=== PATIENT | female | born 2000 | race Caucasian/White ===

== ENCOUNTER → 2022-11-03 11:00 | Outpatient (BNVA) | payer MEDICAID, SELFPAY | PROVIDERS: Visit Provider Nurse Practitioner Women's Health | DX: Z30.9 Encounter for contraceptive management, unspecified (principal); Z12.4 Encounter for screening for malignant neoplasm of cervix | CPT/HCPCS: 81025; 88175 ==

== ENCOUNTER → 2022-11-20 15:00 | Outpatient (BNVA) | payer MEDICAID, SELFPAY | PROVIDERS: Visit Provider Nurse Practitioner Women's Health | DX: Z30.42 Encounter for surveillance of injectable contraceptive (principal); Z30.9 Encounter for contraceptive management, unspecified | CPT/HCPCS: 81025 ==

== ENCOUNTER → 2023-03-14 13:10 | Outpatient (BNVA) | payer MEDICAID, SELFPAY | PROVIDERS: Visit Provider Registered Nurse Neonatal Intensive Care | DX: Z20.822 Contact with and (suspected) exposure to COVID-19 (principal) | CPT/HCPCS: 87426 ==

== ENCOUNTER → 2023-05-28 14:15 | Outpatient (BNVA) | payer MEDICAID, SELFPAY | PROVIDERS: Visit Provider Nurse Practitioner Family | DX: R11.2 Nausea with vomiting, unspecified (principal); R39.9 Unspecified symptoms and signs involving the genitourinary system | CPT/HCPCS: 81003; 81025 ==

== ENCOUNTER 2023-06-03 08:18 | Outpatient (CLI) | payer MEDICAID, SELFPAY ==
--- NOTE | 2023-06-03 08:45 | US_ITS ---
WS: [id number] RIGHT UPPER QUADRANT ULTRASOUND HISTORY: R11.0 - Nausea COMPARISON: None available. Liver: 16.6 cm in length. Normal size liver and echogenicity. No bile duct dilatation or mass. Portal Vein: Normal hepatopetal flow with monophasic waveform. Gallbladder: Normally distended gallbladder with no stones or wall thickening. CBD: 0.3 cm Pancreas: Portions of the head and tail are obscured. The body is negative. Right kidney: 10.7 cm in length. Normal size and echogenicity. No hydronephrosis or mass. Aorta and IVC: Unremarkable abdominal aorta and IVC. No ascites. US/US gall bladder [id number] IMPRESSION: Normal RIGHT upper quadrant ultrasound.
== END 2023-06-03 08:19 | disposition home or self-care (01) ==
LOC: RAD 08:21
PROVIDERS: PCP Nurse Practitioner Family; Visit Provider Nurse Practitioner Family
DX: R11.0 Nausea (principal)
CPT/HCPCS: 76705; 81003; 81025

== ENCOUNTER 2024-02-04 20:49 | Outpatient (CLI) | payer BC, SELFPAY ==
[2024-02-04] VITALS (12 sets, daily range): BP systolic 114–136; BP diastolic 56–73; PULSE 81–104; TEMP 36.6–37.1; BMI 44.9
[2024-02-04 21:30] LABS: Bacteria Urine 1+ /hpf; Bilirubin Urine Neg (Negative); Blood Urine Trace (Negative); Glucose Urine UA Norm (Normal); Ketones Urine Negative (Negative); Leukocyte Esterase Urine Negative (Negative); Nitrate Urine Negative (Negative); Protein Urine Neg (Negative); RBC Urine 0-4 /hpf (0-2); Specific Gravity, Urine 1.015 (1.005-1.030); Squamous Epithelial Cell Urine 15-25 /hpf (0-5); Urine Appearance Clear (CLEAR); Urine Color Dark Yellow (Yellow); Urobilinogen Urine 1 mg/dL (Negative); pH Urine 6.5 (5-7)
[2024-02-04] MEDS: ondansetron 4 MG Tablet PO (21:36)
[2024-02-04] MEDS: acetaminophen 500 mg Tablet 1000 MG PO (21:36)
[2024-02-04] MEDS: lactated ringers 1,000 ML 999 ML IV (22:46)
[2024-02-05 00:04] VITALS: BP 129/58; PULSE 81; RESP 16
== END 2024-02-05 00:04 | disposition home or self-care (01) ==
LOC: OPOB 20:50 → OBGYN 20:52
PROVIDERS: Visit Provider Family Medicine
DX: O26.899 Other specified pregnancy related conditions, unspecified trimester (principal); Z3A.00 Weeks of gestation of pregnancy not specified
CPT/HCPCS: 59025; 81001; 99211; J7120; Q0162

== ENCOUNTER 2024-03-16 03:25 | Inpatient (IN) | payer BC, MEDICAID, SELFPAY ==
[2024-03-16] VITALS (54 sets, daily range): BP systolic 109–154; BP diastolic 55–93; PULSE 63–104; RESP 14–18; TEMP 36.6–36.7; O2SAT 97–100; BMI 46.5
[2024-03-16 02:49] LABS: Basophils # 0.1 10^3/uL (0.0-0.1); Basophils % 0.4 %; Eosinophils # 0.2 10^3/uL (0.0-0.8); Eosinophils % 1.1 %; Hematocrit 37.1 % (36-47); Lymphocytes % 18.7 %; Mean Corpuscular HGB Conc 32.6 g/dL (30-55); Mean Corpuscular Hemoglobin 27.8 pg (27-33); Mean Corpuscular Volume 85.3 fl (85-98); Mean Platelet Volume 10.5 fL (7.4-10.4); Monocytes # 1.1 10^3/uL (0.2-0.9); Monocytes % 6.7 %; Neutrophils # 11.51 10^3/uL (1.8-7.7); Neutrophils % 72.5 %; Nucleated Red Blood Cells % 0 %; Platelet Count 257 10^3/cmm (157-399); Red Blood Count 4.35 10^6/uL (3.85-5.65); Red Cell Distribution Width 13.2 % (12.1-15.1); White Blood Count 15.88 10^3/uL (3.29-11.43)
[2024-03-16 04:06] LABS: Amphetamines Screen Urine Negative (Negative); Barbiturates Screen Urine Negative (Negative); Benzodiazepines Screen Urine Negative (Negative); Cocaine Screen Urine Negative (Negative); Opiate Screen Urine Negative (Negative); PCP Screen Urine Negative (Negative); THC Screen Urine Positive (Negative)
--- NOTE | 2024-03-16 04:37 | ANES.PREANE2 ---
Pre-Anesthetic Assessment Height/Weight: Height 1.6 m Weight 119.295 kg Pulse Resp BP Pulse Ox O2 Del Method 88 18 131/69 100 Room Air 03/16/24 04:34 03/16/24 02:25 03/16/24 04:34 03/16/24 04:22 03/16/24 02:30 Epidural Familial anesthetic complications: None Was Beta Chris taken within 24 hours: N/A Was Clonidine taken within 24 hours: N/A Last intake: 2029 solid food Social Tobacco (Vapes) and No alcohol Exam alert, oriented x 3, clear to auscultation bilaterally and regular rate & rhythm Airway Submandibular: within normal limits Cervical ROM: within normal limits Mallampati: Class II Dentition: full History/ROS No significant history except as noted and No significant complaints Pulmonary None reported CV/HEM None reported None reported Hepatic None reported GI Gastroesophageal Reflux Disease Metabolic Morbid Obesity [facility] None reported Neuropsych None reported Anesthetic Plan ASA status: 3 Anesthesia: Anesthesia Evaluation, General and Regional (specify below) (Epidural) Risk of > 500 ml blood loss (7ml/kg in children): Yes, adequate IV access and fluids planned Medications/Allergies Home Medications Medication Instructions Recorded Confirmed Last Taken Type famotidine 20 mg tablet 20 mg PO BID PRN Acid Reflux 02/04/24 03/16/24 Unknown History vitamin with calcium 1 tab PO DAILY 02/04/24 03/16/24 3 Days Ago History no.72-iron 27 mg-folic acid 1 mg ~03/13/24 tablet ( Vitamins Plus Low 1 Iron) Allergies Allergy/AdvReac Type Severity Reaction Status Date / Time No Known Allergies Allergy Verified 05/28/23 14:30 [facility] Anesthesia Medical History No pertinent past medical history neghx: htn,dm,thyroid,dvt/pe PCP: Surgical History S/P tonsillectomy and adenoidectomy Family History Grandmother Diabetes maternal Stroke maternal Father Clotting disorder Hypercholesteremia Mother Hypertension Denies family history of Colon cancer Ovarian cancer Heart disease Breast cancer Anesthesia complication Bleeding disorder Uterine cancer Thyroid disease Social History Smoking and tobacco/nicotine status: current every day tobacco/nicotine user e-cigarettes E-Cigarette Details: vaporizer device Second hand smoke exposure: No Alcohol intake: current Alcohol intake frequency: holidays/special occasions only Alcohol type: beer and hard liquor Substance/Drug Use: current Substance/Drug use frequency: daily service: No Current occupational status: employed Sexually active: Yes Current gender identity: Female Special mandy needs: No Female Reproductive History : 2 Data Anesthesia 03/16/24 02:45 Short CBC 03/16/24 Range/Units 02:45 WBC 15.88 H (3.29-11.43) 10^3/uL Hgb 12.10 (11.27-16.99) g/dL Hct 37.1 (36-47) % MCV 85.3 (85-98) fl Plt Count 257 (157-399) 10^3/cmm Neut % (Auto) 72.5 % Neut # (Auto) 11.51 H (1.8-7.7) 10^3/uL Blood Bank 03/16/24 02:45 Blood Type O Positive Rho(D) Type Rh positive Antibody Screen Negative Cardiac Studies: No Data to Display
--- NOTE | 2024-03-16 04:41 | ANES.PROC ---
Anesthesia Procedures Procedure/Date: 03/16/24 Epidural: Time Out Performed: Yes Consents Signed: Procedure Consent and NPO Consent Consent: requested by attending/covering physician, from patient, risks and benefits reviewed and patient agrees to proceed Lumbar Level: L4-L5 Epidural position: sitting Epidural procedure: sterile prep of area (betadine), 1% lidocaine to numb the area (3 mLs), neg for paresthesia, test dose given, 1.5% xylocaine 1:200k epi (3 mL/2 mL), 0.2% Ropivacaine bolus ml (5 mLs), placed PCEA, no systemic response, sterile dressing applied, L.U.D. no apparent complications and 0.2% Ropiavacaine @ mls/hr (10 mLs/hr) Additional Comments: Attepmt x2. CAROLINE 9cm, catheter threaded to 14cm
[2024-03-16] MEDS: calcium carbonate 500 mg Chew Tablet 1000 MG PO (04:47)
[2024-03-16] MEDS: dextrose 5%-lactated ringers 1,000 ML 125 ML IV (04:48)
[2024-03-16] MEDS: ROPivacaine syringe 100 MG/50 ML SYRINGE 10 MG EPIDURAL ×2 (04:48→07:18)
[2024-03-16] MEDS: lactated ringers 1,000 ML 999 ML IV (04:48)
[2024-03-16] MEDS: ondansetron 2 mg/ML SDV 2 mL 4 MG IVP (07:13)
--- NOTE | 2024-03-16 07:16 | PM.OPHPUD ---
Labor & Delivery H&P Update Date of Procedure: March 16, 2024 Date H&P Performed: 03/15/24 Changes to previous documentation: Cervix dilated to 5 cm Admission Diagnosis: 23-year-old 2 para 1-0-0-1 at 39 weeks estimated gestational age Planned procedure: Spontaneous vaginal delivery Other information: The patient is a relatively healthy 23-year-old female who presented to the hospital after having consistent contractions before arriving at the hospital. Upon arrival to hospital she was found to be dilating and alexander consistently. Her has been relatively unremarkable. Her blood type is O+. Her antibody screen is negative. She is positive for marijuana. She is rubella immune. She is GBS negative. The remainder of her infectious disease profile is within normal limits. Related Problem List Diagnoses (1) 39 weeks gestation of : A&P Assessment and plan (1) 39 weeks gestation of : I anticipate routine spontaneous vaginal delivery. Status: Acute
--- NOTE | 2024-03-16 08:16 | PM.DELIVERY ---
Delivery Note: Date of delivery: March 16, 2024 Pre-delivery diagnoses: 23-year-old 2 para 1-0-0-1 at 39 weeks estimated gestational age presenting in active labor Post-delivery diagnoses: Status post spontaneous vaginal delivery Procedure: Spontaneous vaginal delivery Delivering Physician: Piyush Espinoza Estimated blood loss (mL): 100 Pre-Delivery Course: The patient presented to the hospital in active labor. An epidural was placed. An amniotomy was performed about an hour prior to delivery she progressed to complete without difficulty. Delivery: DELIVERY: The patient progressed to complete without difficulty. She delivered a female with a weight of 8 pounds 1 ounce with Apgars of 8, 9. The baby was delivered from the MERCEDES position. The baby's mouth and nose were suctioned shortly after delivery. The cord was then clamped and cut. There was no nuchal cord. There was no meconium. The placenta and 3 vessel cord were delivered intact shortly thereafter. The perineum and vaginal vault were carefully examined. A first-degree posterior midline tear was noted which was repaired with 3-0 Vicryl in a [id number] stitch. Both the mother and the baby were in stable condition. Post-Delivery Status: Good History History History 2 Term 1 0 Miscarriages/Ectopic 0 Living Children 1 A&P Assessment and plan (1) Spontaneous vaginal delivery: I anticipate routine care Coding Level of Care Code Acute Code for Chg Fwd Diagnoses Spontaneous vaginal delivery O80
[2024-03-16] MEDS: acetaminophen 325 mg Tablet 650 MG PO (08:24)
[2024-03-16] MEDS: PRENATAL VIT NO.130/IRON/FOLIC 1 EACH TABLET PO (10:42)
[2024-03-16] MEDS: benzocaine-menthol 78 gm Canister 1 SPRAY TOPICAL (10:42)
[2024-03-16] MEDS: docusate sodium 100 mg Capsule PO ×2 (10:42→17:57)
[2024-03-16] MEDS: ibuprofen 800 mg tablet PO ×3 (10:42→20:46)
[2024-03-16] MEDS: lanolin oint 7 gm 1 APPLIC TOPICAL (16:36)
[2024-03-16 20:33] LABS: Hematocrit 32.5 % (36-47); Mean Corpuscular HGB Conc 32.6 g/dL (30-55); Mean Platelet Volume 10.3 fL (7.4-10.4); Platelet Count 220 10^3/cmm (157-399); Red Blood Count 3.78 10^6/uL (3.85-5.65); Red Cell Distribution Width 13.2 % (12.1-15.1); White Blood Count 17.64 10^3/uL (3.29-11.43)
[2024-03-17 04:00] VITALS: BP 124/81; PULSE 83; RESP 16; TEMP 36.4; O2SAT 98
--- NOTE | 2024-03-17 08:00 | ANE.PACU2 ---
Inpatient post-anesthesia follow up: Airway intact: Yes Vital signs: Temperature 98 F Pulse Rate 65 Respiratory Rate 16 Blood Pressure 141/83 Pulse Oximetry 98 Oxygen Delivery Me thod Room Air Oxygen Flow Rate Fraction of Inspir ed Oxygen Hydration adequate: Yes Nausea and vomiting: No Pain level: 1 Mental status: Baseline Epidural Start/End: Epidural Start Date: 03/16/24 Epidural Start Time: 03:45 Epidural End Date: 03/16/24 Epidural End Time: 08:05
--- NOTE | 2024-03-17 08:06 | P.DS_ITS ---
Discharge Providers POLICY AND PLANNING MANAGER Date of Admission: 03/16/24 03:25 Date of Discharge: 03/17/24 Attending Provider at Admission: Piyush Espinoza MD Attending Provider at Discharge: Piyush Espinoza MD Diagnoses at Discharge Discharge Diagnosis (1) Spontaneous vaginal delivery: Status: Acute Reason for Visit Reason for Visit: contractions Hospital Course Hospital Course The patient presented to the hospital at 39 weeks in active labor. Her membranes were intact. An epidural was placed. She progressed to complete with out difficulty. She only pushed through a few contractions. She had an unremarkable vaginal delivery of a healthy appearing infant. She had a first- degree posterior midline tear that was repaired with 3-0 Vicryl in a [id number] stitch. Her course was unremarkable. Her bleeding was within normal limits. She breast-fed well. Her pain was well-controlled. There were no concerns. Information Peripartum Data: Delivery Method: Vaginal Physical Exam Narrative: The patient is alert. She appears comfortable. Her heart has a regular rate and rhythm with no murmurs appreciated. Lungs are clear to auscultation bilaterally. Her fundus is firm and below the umbilicus. Urinary Catheter Management: Romero: Cath Placed During This Visit: yes, but has since been removed by the nurse Reason for Continuing Indwelling Catheter: Decision to DC Catheter Urinary Catheter Date of Insertion: 03/16/24 Urinary Catheter Time of Insertion: 05:15 Date Urinary Catheter Removed: 03/16/24 Time Urinary Catheter Discontinued: 07:40 History History History 2 Term 1 0 Miscarriages/Ectopic 0 Living Children 1 Discharge Data Studies Completed and Pending Laboratory Results WBC 17.64 10^3/uL (3.29-11.43) H 03/16/24 20: RBC 3.78 10^6/uL (3.85-5.65) L 03/16/24 20:27 Hgb 10.60 g/dL (11.27-16.99) L 03/16/24 20: Hct 32.5 % (36-47) L 03/16/24 20:27 MCV 86.0 fl (85-98) 03/16/24 20: MCH 28.0 pg (27-33) 03/16/24 20: MCHC 32.6 g/dL (30-55) 03/16/24 20:27 RDW 13.2 % (12.1-15.1) 03/16/24 20:27 Plt Count 220 10^3/cmm (157-399) 03/16/24 20:27 MPV 10.3 fL (7.4-10.4) 03/16/24 20:27 Neut % (Auto) 72.5 % 03/16/24 02:45 Lymph % (Auto) 18.7 % 03/16/24 02:45 [place] % (Auto) 6.7 % 03/16/24 02:45 Eos % (Auto) 1.1 % 03/16/24 02:45 Baso % (Auto) 0.4 % 03/16/24 02:45 Neut # (Auto) 11.51 10^3/uL (1.8-7.7) H 03/16/24 02:45 Lymph # (Auto) 3.0 10^3/uL (0.8-4.8) 03/16/24 02:45 [place] # (Auto) 1.1 10^3/uL (0.2-0.9) H 03/16/24 02:45 Eos # (Auto) 0.2 10^3/uL (0.0-0.8) 03/16/24 02:45 Baso # (Auto) 0.1 10^3/uL (0.0-0.1) 03/16/24 02:45 Nucleated RBC % (auto) 0 % 03/16/24 02:45 Nucleated RBCs # 0.0 /100WBC 03/16/24 02:45 Urine Opiates Screen Negative ng/mL (Negative) 03/16/24 02:45 Ur Barbiturates Screen Negative ng/mL (Negative) 03/16/24 02:45 Ur Phencyclidine Scrn Negative ng/mL (Negative) 03/16/24 02:45 Ur Amphetamines Screen Negative ng/mL (Negative) 03/16/24 02:45 U Benzodiazepines Scrn Negative ng/mL (Negative) 03/16/24 02:45 Urine Cocaine Screen Negative ng/mL (Negative) 03/16/24 02:45 U Marijuana (THC) Screen Positive ng/mL (Negative) H 03/16/24 02:45 Blood Type O Positive 03/16/24 02:45 Rho(D) Type Rh positive 03/16/24 02:45 Antibody Screen Negative 03/16/24 02:45 Vitals Last Vital Signs Temp 97.6 F 03/17/24 04:00 Pulse 83 03/17/24 04:00 Resp 16 03/17/24 04:00 BP 124/81 03/17/24 04:00 Pulse Ox 98 03/17/24 04:00 O2 Del Method Room Air 03/17/24 04:00 Results Labs OB ([facility]): Obstetrics US 12/15/23 Blood Type O Positive 03/16/24 Antibody Screen Negative 03/16/24 Hct 32.5 % (36-47) L 03/16/24 Hgb 10.60 g/dL (11.27-16.99) L 03/16/24 Rho(D) Type Rh positive 03/16/24 Plt Count 220 10^3/cmm (157-399) 03/16/24 HCG, Qual Negative (Negative) 05/28/23 Urine Opiates Screen Negative ng/mL (Negative) 03/16/24 Ur Barbiturates Screen Negative ng/mL (Negative) 03/16/24 Ur Phencyclidine Scrn Negative ng/mL (Negative) 03/16/24 Ur Amphetamines Screen Negative ng/mL (Negative) 03/16/24 U Benzodiazepines Scrn Negative ng/mL (Negative) 03/16/24 Urine Cocaine Screen Negative ng/mL (Negative) 03/16/24 U Marijuana (THC) Screen Positive ng/mL (Negative) H Pap Smear Interpret See note 11/03/22 Discharge Plan Discharge Patient Disposition: Home Condition: Stable Prescriptions: New ibuprofen 800 mg Tablet 800 mg PO TID Qty: 45 0RF Continued Vitamin Plus Low Iron 27 mg iron- 1 mg tablet 1 tab PO DAILY Discontinued famotidine 20 mg Tablet 20 mg PO BID PRN (Reason: Acid Reflux) Discharge Orders: Discharge Order (Routine); Ordered 03/17/24 Ordered By: Piyush Espinoza Referrals: Piyush Espinoza MD [Physician] - 6 Weeks Discharge Diet: Usual diet Discharge Activity: Limit activity as instructed Patient Instructions: Depression (DC), Opioid Safety (DC), Preeclampsia and Eclampsia After Delivery (GEN), Hemorrhage (DC), OB Discharge Report, OB Food/Drug Interaction Guide, OB Care at Home, Opioid Safety, OB Vaginal Deliveries, Abnormal Bleeding Discharge Attestations POLICY AND PLANNING MANAGER Time Spent in Discharge Care*: less than 30 min Coding Level of Care Code Acute Code for Chg Fwd Diagnoses Spontaneous vaginal delivery O80
[2024-03-17] MEDS: docusate sodium 100 mg Capsule PO (09:13)
[2024-03-17] MEDS: PRENATAL VIT NO.130/IRON/FOLIC 1 EACH TABLET PO (09:13)
[2024-03-17] MEDS: ibuprofen 800 mg tablet PO (09:13)
[2024-03-17 09:35] VITALS: BP 141/83; PULSE 65; RESP 16; TEMP 36.6; O2SAT 98
== END 2024-03-17 09:40 | disposition home or self-care (01) | DRG 807 ==
LOC: OPOB 03:25 → OBGYN 03:25
PROVIDERS: Admitting Provider Family Medicine; Visit Provider Family Medicine
DX: O99.334 Smoking (tobacco) complicating childbirth (principal); Z37.0 Single live birth; F17.290 Nicotine dependence, other tobacco product, uncomplicated; O70.0 First degree perineal laceration during delivery; Z3A.39 39 weeks gestation of pregnancy; R82.5 Elevated urine levels of drugs, medicaments and biological substances
CPT/HCPCS: 36415; 51702; 59025; 59409; 80306; 85025; 85027; 86850; 86900; 98960; 99211; J2405; J2795; J7120; J7121